=== PATIENT | female | born 1990 | race Caucasian/White ===

== ENCOUNTER → 2022-06-10 10:06 | Outpatient (CLI) | payer OTHER, SELFPAY ==
--- NOTE | ~2022-06-10 | US_ITS ---
US breast LT complete DATE: 06/10/2022 10:24 INDICATION: Mastodynia, nipple discharge TECHNIQUE: Real-time imaging of complete left breast including subareolar area and all 4 quadrants COMPARISON: None FINDINGS: No suspicious mass or shadowing, cyst or other significant sonographic finding is noted. IMPRESSION: Negative BI-RADS Category 1 Reviewed, dictated and finalized at [facility]. Reviewed, dictated and finalized at [facility]. IMPRESSION: Negative BI-RADS Category 1
== END ==
PROVIDERS: PCP Nurse Practitioner; Visit Provider Nurse Practitioner
DX: N64.4 Mastodynia (principal); N64.52 Nipple discharge
CPT/HCPCS: 76641